=== PATIENT | female | born 1945 | race Caucasian/White ===

== ENCOUNTER → 2017-08-31 | Outpatient (CLI) | payer OTHER | LOC: LAB SHORT 07:59 → PLD 07:59 | DX: C44.82 Squamous cell carcinoma of overlapping sites of skin (principal) | CPT/HCPCS: 88305 ==

== ENCOUNTER → 2017-09-21 | Outpatient (CLI) | payer OTHER | END | disposition home or self-care (01) | LOC: PLD 13:57 → LAB SHORT 13:57 | DX: C44.320 Squamous cell carcinoma of skin of unspecified parts of face (principal) | CPT/HCPCS: 88305 ==

== ENCOUNTER → 2020-08-05 | Outpatient (CLI) | payer OTHER ==
[~2020-08-05] MED LIST: CENTRUM SILVER1 EAC2 PO; ERGO50000 PO; HYDCHL25 PO; LISI20 PO; METO25
[2020-08-07 16:42] LABS: CORONAVIRUS (COVID19) CSH-NRL Negative (Negative)
== END | disposition home or self-care (01) ==
LOC: LAB 12:26 → LAB SHORT 12:26
PROVIDERS: Student in an Organized Health Care Education/Training Program
DX: Z20.822 Contact with and (suspected) exposure to COVID-19 (principal)
CPT/HCPCS: U0003

== ENCOUNTER 2022-02-18 08:37 | Day surgery (SDC) | payer MEDICARE ==
[~2022-02-18] VITALS: Ht 172.7 cm; Wt 53.7 kg
--- NOTE | 2022-02-18 10:28 | NUR ---
02/18/22 1028 TANVI MCNEIL 1020 SITE CHECK DONE WITH THIS RN AND DR DENISE, CORRECT SITE NOTED. 1021 INJECTION OF LIDOCAINE 2% WITH 1:100,000 LIDOCAINE INJECTED BY PHYSICIAN. O2 SATURATION MAINTAINED ABOVE 96% DURING PROCEDURE. PT TOLERATED WELL.
--- NOTE | 2022-02-18 11:29 | NUR ---
02/18/22 1129 OTIS ANDERSON IV FLUIDS GIVEN TO HELP WITH HYPOTENSION. SEE VSS FOR COMPLETE DETAILS
== END 2022-02-18 11:25 | disposition home or self-care (01) ==
LOC: ORSCSDS 08:37
PROVIDERS: Orthopaedic Surgery
PROC: 01N54ZZ Release Median Nerve, Percutaneous Endoscopic Approach (ICD-10-PCS; principal; 2022-02-18 10:00)
DX: G56.01 Carpal tunnel syndrome, right upper limb (principal); I10 Essential (primary) hypertension; E78.5 Hyperlipidemia, unspecified; Z79.899 Other long term (current) drug therapy
CPT/HCPCS: J2250; J2405; J3010